=== PATIENT | female | born 1980 | race Caucasian/White ===

== ENCOUNTER 2023-12-01 06:04 | Emergency (ER) | payer SELFPAY ==
[2023-12-01 06:10] VITALS: BP 133/97; PULSE 81; TEMP 36.4; O2SAT 95; BMI 34.0
--- NOTE | 2023-12-01 06:24 | ED.EAR1 ---
HPI - Ear Problem General Chief complaint: Ear Stated complaint: EAR PAIN Time Seen by Provider: 12/01/23 06:07 Source: patient Mode of arrival: walk-in Limitations: no limitations History of Present Illness HPI Narrative: 43-year-old female presents for left ear pain. It started at 130 this morning, about 5 hours ago. No trauma or drainage. She has had ear issues in the past, typically on the right side. No sore throat or right ear pain. The pain is moderate to severe and continuous. Related Data Home Medications ?Medication ?Instructions ?Recorded ?Confirmed metoprolol succinate 25 mg mg PO 12/01/23 tablet,extended release 24 hr paroxetine HCl 20 mg tablet mg PO 12/01/23 phentermine 37.5 mg tablet mg 12/01/23 tacrolimus 0.5 mg capsule, mg 12/01/23 immediate-release Previous Rx's ?Medication ?Instructions ?Recorded acetaminophen 300 mg-codeine 30 mg 1 tab PO Q6H PRN pain 3 days #10 12/01/23 tablet tabs amoxicillin 500 mg capsule 500 mg PO TID 10 days #30 caps 12/01/23 Allergies Allergy/AdvReac Type Severity Reaction Status Date / Time morphine Allergy Unknown Unknown Verified 12/01/23 06:12 Review of Systems ROS Narrative A ten point review of systems is negative except as noted above. Exam Narrative Exam Narrative: Nurses note and vital signs reviewed and patient is not hypoxic. General: The patient appears uncomfortable sitting on the exam cart. Skin: Warm, dry, no pallor noted. There is no rash noted. Head: Normocephalic, atraumatic Eye: Normal conjunctiva, no drainage Ears, Nose, Mouth, and Throat: oral mucosa is moist. Nares patent. Right TM has normal light reflex and external canal is normal. Left external canal is normal but the left TM is erythematous with a distorted light reflex and is slightly bulging. Cardiovascular: Regular Rate and Rhythm Respiratory: Patient is in no distress, no accessory muscle use, lungs are clear to auscultation, no wheezing, rales or rhonchi Back: non-tender GI: Soft and nontender Musculoskeletal: No joint swelling Neurological: Awake and alert Psychiatric: Cooperative Constitutional Vital Signs, click to edit/add: Last Vital Signs Temp 97.6 F 12/01/23 06:10 Pulse 81 12/01/23 06:10 Resp 18 12/01/23 06:10 BP 133/97 H 12/01/23 06:10 Pulse Ox 95 12/01/23 06:10 O2 Del Method Room Air 12/01/23 06:10 Course Vital Signs Vital signs: Vital Signs Temperature 97.6 F 12/01/23 06:10 Pulse Rate 81 12/01/23 06:10 Respiratory Rate 18 12/01/23 06:10 Blood Pressure 133/97 H 12/01/23 06:10 Pulse Oximetry 95 12/01/23 06:10 Oxygen Delivery Method Room Air 12/01/23 06:10 Temperature 97.6 F 12/01/23 06:10 Pulse Rate 81 12/01/23 06:10 Respiratory Rate 18 12/01/23 06:10 Blood Pressure 133/97 H 12/01/23 06:10 Pulse Oximetry 95 12/01/23 06:10 Oxygen Delivery Method Room Air 12/01/23 06:10 Medical Decision Making MDM Narrative Medical decision making narrative: My clinical impression is that she has otitis media. Treatment diagnosis and follow-up were discussed with the patient. Differential Diagnosis Differential Diagnosis: Otitis media, otitis externa Discharge Plan Discharge Stand Alone Forms: Work/School Release, Portal Instructions Chief Complaint: Ear Clinical Impression: Otitis media Patient Disposition: Home, Self-Care Time of Disposition Decision: :22 Condition: Good Mode of Transportation: Private Vehicle Prescriptions / Home Meds: New amoxicillin 500 mg capsule 500 mg PO TID 10 Days Qty: 30 0RF acetaminophen-codeine 300-30 mg tablet 1 tab PO Q6H PRN (Reason: pain) 3 Days Qty: 10 0RF No Action phentermine 37.5 mg tablet paroxetine HCl 20 mg tablet PO metoprolol succinate 25 mg tablet extended release 24 hr PO tacrolimus 0.5 mg capsule Print Language: Macedonian Instructions: Ear Infection (ED)
[2023-12-01] MEDS: ACETAMINOPHEN 300 MG/ 30 MG CODEINE TABLET 1 TAB PO (06:32)
[2023-12-01] MEDS: AMOXICILLIN 500 MG CAPSULE PO (06:32)
== END 2023-12-01 06:36 | disposition home or self-care (01) ==
PROVIDERS: Emergency Provider Emergency Medicine; PCP Family Medicine
DX: H66.92 Otitis media, unspecified, left ear (principal)
CPT/HCPCS: 99283